=== PATIENT | female | born 1985 | race African-American/Black ===

== ENCOUNTER 2019-06-27 19:28 | Emergency (ER) | payer SELFPAY ==
[~2019-06-27] VITALS: Ht 157.5 cm; Wt 75.0 kg
[~2019-06-27 19:28] MED LIST: FERR1TAB22 PO; NOCURR; ONDA-104 PO; PREN1TAB80 PO
[2019-06-27] MEDS ORDERED: LIDOCAINE 5% TRANSDERMAL PATCH TD ONE (19:45)
[2019-06-27] MEDS ORDERED: ACETAMINOPHEN 325 MG TABLET PO ONE (19:45)
[2019-06-27] MEDS ORDERED: METF-960 PO (19:49)
[2019-06-27] MEDS ORDERED: QUET200T PO (19:49)
[2019-06-27] MEDS ORDERED: INSLAN SQ (19:49)
[2019-06-27] MEDS ORDERED: IBUPROFEN 400 MG TABLET ONE (21:23)
[2019-06-27 21:30] VITALS: BP 132/80
[2019-06-27] MEDS ORDERED: IBUPROFEN 400 MG TABLET PO ONE (21:30)
== END 2019-06-27 21:30 | disposition home or self-care (01) ==
LOC: EMS 19:29
DX: M25.511 Pain in right shoulder (principal); E11.9 Type 2 diabetes mellitus without complications; F32.9 Major depressive disorder, single episode, unspecified; E78.00 Pure hypercholesterolemia, unspecified; F17.210 Nicotine dependence, cigarettes, uncomplicated; F12.90 Cannabis use, unspecified, uncomplicated; Z88.1 Allergy status to other antibiotic agents; Z79.4 Long term (current) use of insulin; Z79.84 Long term (current) use of oral hypoglycemic drugs